=== PATIENT | female | born 1970 ===

== ENCOUNTER 2018-01-27 12:29 | Emergency (ER) | payer BC, OTHER ==
[2018-01-27 12:34] VITALS: TEMP 98.4
[2018-01-27 12:43] VITALS: BMI 30.3
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
--- NOTE | 2018-01-27 14:14 | CT ---
PROCEDURE: CT Cervical Spine without contrast HISTORY: [facility] COMPARISON: None available. TECHNIQUE: Axial computed tomography images were obtained of the cervical spine without the use of intravenous contrast. Coronal and sagittal reformatted images were created and reviewed. Radiation dose: Total exam DLP = 619 mGy-cm. This CT exam was performed using one or more of the following dose reduction techniques: Automated exposure control, adjustment of the mA and/or kV according to patient size, and/or use of iterative reconstruction technique. FINDINGS: VERTEBRAE: No fracture. Normal alignment. No destructive bony lesion. DISCS/SPINAL CANAL/NEURAL FORAMINA: No significant central canal or neural foraminal stenosis. Discs heights are grossly preserved. PARASPINAL SOFT TISSUES: Unremarkable. OTHER FINDINGS: There is mild reversal of the normal lordotic curvature IMPRESSION: Unremarkable CT of the cervical spine.
--- NOTE | 2018-01-27 14:34 | RAD ---
PROCEDURE: Radiographs of the Lumbar Spine. HISTORY: back pain r/o fx COMPARISON: No prior. FINDINGS: BONES: Normal alignment. No listhesis. No fracture. DISC SPACES: Unremarkable. OTHER FINDINGS: None. IMPRESSION: Unremarkable radiographs of the lumbar spine.
[2018-01-27 14:49] VITALS: BP 117/58; PULSE 73; RESP 16; O2SAT 95
== END 2018-01-27 14:49 | disposition home or self-care (01) ==
LOC: ED 12:29
DX: S16.1XXA Strain of muscle, fascia and tendon at neck level, initial encounter (principal); S39.012A Strain of muscle, fascia and tendon of lower back, initial encounter; V49.9XXA Car occupant (driver) (passenger) injured in unspecified traffic accident, initial encounter; R51 Headache
CPT/HCPCS: 70450; 72110; 72125; 96372; 99285; J2765

== ENCOUNTER 2019-01-31 06:44 | Outpatient (CLI) | payer BC | END 2019-01-31 06:45 | disposition home or self-care (01) | LOC: LAB 06:44 | DX: L03.316 Cellulitis of umbilicus (principal) ==